=== PATIENT | female | born 1950 | race Two or more races ===

== ENCOUNTER 2017-09-22 09:04 | Outpatient (CLI) | payer OTHER ==
[~2017-09-22 09:04] MED LIST: CELEBREX200MG PO; VOLTAREN-XR100 MG PO
== END 2017-09-22 17:00 | disposition home or self-care (01) ==
LOC: MAMO-SONO 09:04
DX: Z12.31 Encounter for screening mammogram for malignant neoplasm of breast (principal); Z87.898 Personal history of other specified conditions; N61.0 Mastitis without abscess; N60.19 Diffuse cystic mastopathy of unspecified breast

== ENCOUNTER 2017-09-24 07:03 | Outpatient (CLI) | payer OTHER | END 2017-09-24 07:28 | disposition home or self-care (01) | LOC: LAB 07:03 | DX: C73 Malignant neoplasm of thyroid gland (principal); E11.9 Type 2 diabetes mellitus without complications; D64.89 Other specified anemias; E78.2 Mixed hyperlipidemia; I10 Essential (primary) hypertension; E03.8 Other specified hypothyroidism ==

== ENCOUNTER 2018-04-24 07:26 | Outpatient (CLI) | payer OTHER | END 2018-04-24 07:39 | disposition home or self-care (01) | LOC: LAB 07:26 | DX: D64.89 Other specified anemias (principal); E11.9 Type 2 diabetes mellitus without complications; E78.2 Mixed hyperlipidemia; K76.89 Other specified diseases of liver; E03.8 Other specified hypothyroidism; E55.9 Vitamin D deficiency, unspecified; R29.898 Other symptoms and signs involving the musculoskeletal system ==

== ENCOUNTER → 2018-07-08 | Outpatient (CLI) | payer OTHER | END | disposition home or self-care (01) | LOC: NUCLEAR 09:46 | DX: M81.0 Age-related osteoporosis without current pathological fracture (principal) ==

== ENCOUNTER 2018-09-23 07:41 | Outpatient (CLI) | payer OTHER | END 2018-09-23 07:47 | disposition home or self-care (01) | LOC: LAB 07:41 | DX: D64.89 Other specified anemias (principal); E11.9 Type 2 diabetes mellitus without complications; E78.2 Mixed hyperlipidemia; I10 Essential (primary) hypertension; E03.8 Other specified hypothyroidism ==

== ENCOUNTER → 2018-09-25 | Outpatient (CLI) | payer OTHER | END | disposition home or self-care (01) | LOC: MAMO-SONO 07:30 | DX: Z12.31 Encounter for screening mammogram for malignant neoplasm of breast (principal); Z87.898 Personal history of other specified conditions ==

== ENCOUNTER 2019-03-15 07:33 | Outpatient (CLI) | payer OTHER | END 2019-03-15 07:44 | disposition home or self-care (01) | LOC: LAB 07:33 | DX: D64.89 Other specified anemias (principal); E11.9 Type 2 diabetes mellitus without complications; E78.2 Mixed hyperlipidemia; I10 Essential (primary) hypertension; E03.8 Other specified hypothyroidism; E55.9 Vitamin D deficiency, unspecified ==

== ENCOUNTER → 2020-01-31 | Outpatient (CLI) | payer OTHER | END | disposition home or self-care (01) | LOC: MAMO-SONO 07:45 | PROVIDERS: ATTEND Internal Medicine Sports Medicine | DX: Z12.31 Encounter for screening mammogram for malignant neoplasm of breast (principal); Z13.89 Encounter for screening for other disorder; R92.0 Mammographic microcalcification found on diagnostic imaging of breast ==

== ENCOUNTER 2021-04-02 09:01 | Outpatient (CLI) | payer OTHER | END 2021-04-02 09:12 | disposition home or self-care (01) | LOC: MAMO-SONO 09:01 | PROVIDERS: ATTEND Internal Medicine Sports Medicine | DX: R92.1 Mammographic calcification found on diagnostic imaging of breast (principal); N64.59 Other signs and symptoms in breast; Z12.31 Encounter for screening mammogram for malignant neoplasm of breast ==

== ENCOUNTER 2021-07-23 07:37 | Outpatient (CLI) | payer OTHER | END 2021-07-23 07:52 | disposition home or self-care (01) | LOC: SONOGRAMA 07:37 | PROVIDERS: ATTEND Specialist | DX: R31.9 Hematuria, unspecified (principal) ==

== ENCOUNTER 2021-09-20 07:29 | Outpatient (CLI) | payer OTHER | END 2021-09-20 07:33 | disposition home or self-care (01) | LOC: LAB 07:29 | PROVIDERS: ATTEND Internal Medicine Sports Medicine | DX: D64.9 Anemia, unspecified (principal); E11.9 Type 2 diabetes mellitus without complications; E78.2 Mixed hyperlipidemia; I10 Essential (primary) hypertension; E03.8 Other specified hypothyroidism; C73 Malignant neoplasm of thyroid gland ==

== ENCOUNTER → 2021-12-10 | Outpatient (CLI) | payer OTHER | END | disposition home or self-care (01) | LOC: NUCLEAR 08:00 | PROVIDERS: ATTEND Internal Medicine Sports Medicine | DX: M81.0 Age-related osteoporosis without current pathological fracture (principal) ==

== ENCOUNTER 2021-12-25 07:29 | Outpatient (CLI) | payer OTHER | END 2021-12-25 07:30 | disposition home or self-care (01) | LOC: LAB 07:29 | PROVIDERS: ATTEND Internal Medicine Sports Medicine | DX: D64.9 Anemia, unspecified (principal) ==

== ENCOUNTER 2022-04-01 07:07 | Outpatient (CLI) | payer OTHER | END 2022-04-01 07:09 | disposition home or self-care (01) | LOC: LAB 07:07 | PROVIDERS: ATTEND Internal Medicine Sports Medicine | DX: E55.9 Vitamin D deficiency, unspecified (principal); D64.9 Anemia, unspecified; E11.9 Type 2 diabetes mellitus without complications; E78.2 Mixed hyperlipidemia; I10 Essential (primary) hypertension; E03.8 Other specified hypothyroidism ==

== ENCOUNTER 2022-04-16 07:05 | Outpatient (CLI) | payer OTHER | END 2022-04-16 07:16 | disposition home or self-care (01) | LOC: MAMO-SONO 07:05 | PROVIDERS: ATTEND Specialist | DX: N60.11 Diffuse cystic mastopathy of right breast (principal); N60.12 Diffuse cystic mastopathy of left breast ==

== ENCOUNTER 2022-12-11 07:37 | Outpatient (CLI) | payer OTHER | END 2022-12-11 07:45 | disposition home or self-care (01) | LOC: NUCLEAR 07:37 | PROVIDERS: ATTEND Internal Medicine Sports Medicine | DX: I65.23 Occlusion and stenosis of bilateral carotid arteries (principal) ==

== ENCOUNTER 2023-04-28 08:22 | Outpatient (CLI) | payer OTHER | END 2023-04-28 08:32 | disposition home or self-care (01) | LOC: MAMO-SONO 08:22 | PROVIDERS: ATTEND Specialist | DX: N60.11 Diffuse cystic mastopathy of right breast (principal); N60.12 Diffuse cystic mastopathy of left breast; C43.39 Malignant melanoma of other parts of face; Z12.31 Encounter for screening mammogram for malignant neoplasm of breast ==

== ENCOUNTER 2024-02-12 12:43 | Outpatient (CLI) | payer OTHER | END 2024-02-12 12:48 | disposition home or self-care (01) | LOC: NUCLEAR 12:43 | PROVIDERS: ATTEND Internal Medicine Sports Medicine | DX: M85.859 Other specified disorders of bone density and structure, unspecified thigh (principal); M85.88 Other specified disorders of bone density and structure, other site; M81.0 Age-related osteoporosis without current pathological fracture ==

== ENCOUNTER 2024-05-19 08:08 | Outpatient (CLI) | payer OTHER | END 2024-05-19 08:24 | disposition home or self-care (01) | LOC: MAMO-SONO 08:08 | PROVIDERS: ATTEND Specialist | DX: N60.11 Diffuse cystic mastopathy of right breast (principal); N60.12 Diffuse cystic mastopathy of left breast; Z12.31 Encounter for screening mammogram for malignant neoplasm of breast ==

== ENCOUNTER 2024-09-21 07:06 | Outpatient (CLI) | payer OTHER ==
[2024-09-21 07:58] LABS: BASO % 0.8 % (0.1-1.2); EOS # 0.14 (0.04-0.54); EOS % 2.9 % (0.7-7.0); HEMOGLOBIN 14.2 g/dL (11.2-15.7); LYMPH # 2.55 (1.18-3.74); LYMPH % 53.3 % (19.3-53.1); MEAN CORPUSCULAR HEMOGLOBIN 28.2 pg (25.6-32.2); MONO % 8.4 % (4.7-12.5); NEUT # 1.61 (1.56-6.13); NEUT % 33.8 % (34.0-71.1); PLATELET COUNT 454 K/uL (163-369); RED BLOOD COUNT 5.03 M/uL (3.93-5.22); RED CELL DISTRIBUTION WIDTH 12.8 % (11.6-14.4)
[2024-09-21 08:41] LABS: URINE APPEARANCE Clear; URINE BILIRRUBIN Negative (NEGATIVE); URINE BLOOD Negative; URINE COLOR Yellow; URINE GLUCOSE Negative (NEGATIVE); URINE KETONE Negative (NEGATIVE); URINE LEUKOCYTE Trace; URINE NITRATE Negative; URINE PROTEIN Negative (NEGATIVE); URINE UROBILINOGEN 0.2 E.U./dl
[2024-09-21 08:51] LABS: URINE BACTERIA 56.2 uL (0.0-1933); URINE EPITHELIAL CELLS 3.3 uL (0.0-38.8); URINE RBC 17.2 uL (0.0-20.8); URINE WBC 15.1 uL (0.0-23.2)
[2024-09-21 13:39] LABS: ALBUMIN 4.2 gm/dL (3.4-5.0); BILIRUBIN TOTAL 0.35 mg/dL (0.3-1.2); CALCIUM 9.1 mg/dL (8.5-10.1); CHOL HDL RATIO 4.7 (0-5.0); CREATININE SERUM 0.9 mg/dL (0.55-1.02); GFR 60.88; GLOBULINA 3.2 G/DL (2.4-3.5); POTASSIUM 4.36 mEq/L (3.5-5.1); T4 FREE 0.98 NG/ML (0.76-1.46); TOTAL PROTEIN 7.4 gm/dL (6.4-8.2)
[2024-09-21 13:40] LABS: TSH 6.52 uIU/mL (0.358-3.74)
== END 2024-09-21 07:11 | disposition home or self-care (01) ==
LOC: LAB 07:06
PROVIDERS: ATTEND Internal Medicine Sports Medicine
DX: D64.9 Anemia, unspecified (principal); E11.9 Type 2 diabetes mellitus without complications; E78.2 Mixed hyperlipidemia; I10 Essential (primary) hypertension; E03.8 Other specified hypothyroidism; E55.9 Vitamin D deficiency, unspecified; C44.319 Basal cell carcinoma of skin of other parts of face; C73 Malignant neoplasm of thyroid gland; C43.39 Malignant melanoma of other parts of face; R97.8 Other abnormal tumor markers

== ENCOUNTER 2025-01-10 07:23 | Outpatient (CLI) | payer OTHER | END 2025-01-10 07:24 | disposition home or self-care (01) | LOC: NUCLEAR 07:23 | PROVIDERS: ATTEND Internal Medicine | DX: I20.9 Angina pectoris, unspecified (principal); E78.2 Mixed hyperlipidemia | CPT/HCPCS: 78452; 93017; 93306; A9500 ==